=== PATIENT | male | born 1985 | race Caucasian/White ===

== ENCOUNTER 2020-12-12 09:22 | Emergency (ER) | payer OTHER ==
[~2020-12-12] VITALS: Ht 180.3 cm; Wt 124.7 kg
[2020-12-12 10:38] LABS: ABSOLUTE NEUTROPHILS 6.5 thou/uL (1.4-8.2); BASOPHILS 1.1 % (0.0-2.0); EOSINOPHILS 3.1 % (0.0-3.0); HEMATOCRIT 45.3 % (42.0-52.0); HEMOGLOBIN 15.3 gm/dL (14.0-18.0); LYMPHOCYTES 24.3 % (24.0-44.0); MCH 30.5 pg (26.0-34.0); MCHC 33.8 g/dL (28.0-37.0); MCV 90.3 fL (80.0-100.0); PLATELET COUNT 368 thou/uL (150-400); POLYS 65.5 % (36.0-66.0); RBC 5.01 mil/uL (4.50-6.00); RDW 13.4 % (10.5-14.5); WBC 9.9 thou/uL (4.0-11.0)
[2020-12-12 10:44] LABS: CALCIUM 8.8 mg/dL (8.5-10.1); POTASSIUM 4.7 mmol/L (3.5-5.1)
[2020-12-12 10:53] LABS: ALBUMIN 3.6 g/dL (3.4-5.0); TOTAL BILIRUBIN 0.3 mg/dL (0.2-1.0); TOTAL PROTEIN 7.6 g/dL (6.4-8.2)
[2020-12-12 11:52] VITALS: BP 151/97
--- NOTE | 2020-12-13 07:27 | EKG ---
[address] [address] ELECTROCARDIOGRAM REPORT Name: AUTUMN KEYS Room #: DEP Kay#: [id number] Admission: 12/12/20 Attend Phys: Discharge: 12/12/20 Date of : 85 Report #: [id number] [facility] ED Test Date: 2020-12-12 Test Time: 09:25:08 Pat Name: AUTUMN KEYS Department: Room: Gender: Compliance Attorney: BRIANNA : 1985 Requested By: Garo Ledesma Order Number: [id number] MD: Fred Houston Measurements Intervals [place] Rate: 95 P: 14 IA: 133 QRS: 67 QRSD: 76 T: 21 QT: 332 QTc: 418 Interpretive Statements Sinus rhythm No previous ECG available for comparison Electronically Signed On 12-13-2020 7:27:28 CDT by Fred Houston [email or web address] <ELECTRONICALLY SIGNED> By: Fred Houston MD, [facility] 12/13/20 0727 0925 4 Fred Houston MD, FACC /EPI
== END 2020-12-12 11:52 | disposition home or self-care (01) ==
LOC: ER 09:22
PROVIDERS: Emergency Medicine
DX: R07.89 Other chest pain (principal); Z98.890 Other specified postprocedural states